=== PATIENT | female | born 1970 | race Caucasian/White ===

== ENCOUNTER 2018-07-14 18:26 | Emergency (ER) | payer BC ==
--- NOTE | 2018-07-14 19:51 | EDM.PDOC ---
ED HPI GENERAL MEDICAL PROBLEM - General Chief Complaint: Skin Complaint Stated Complaint: FISH HOOK IN MIDDLE FINGER [id number] Time Seen by Provider: 07/14/18 19:46 Source of Information: Reports: Patient History Limitations: Reports: No Limitations - History of Present Illness INITIAL COMMENTS - FREE TEXT/NARRATIVE: got fishhook in finger Right Hand Pain Score (Numeric/FACES): 3 - Related Data Allergies Allergy/AdvReac Type Severity Reaction Status Date / Time codeine Allergy Facial Verified 07/14/18 19:39 Swelling Home Meds: Home Meds Albuterol [Proventil HFA] 2 inh INH ASDIRECTED PRN 07/14/18 [History] ED ROS GENERAL - Review of Systems Review Of Systems: ROS reveals no pertinent complaints other than HPI. ED EXAM, SKIN/RASH Exam: See Below Exam Limited By: No Limitations General Appearance: Alert, WD/WN, Mild Distress, Other (pain in finger) Ears: Hearing Grossly Normal Throat/Mouth: Normal Voice, No Airway Compromise Head: Atraumatic Neck: Non-Tender, Full Range of Motion Respiratory/Chest: No Respiratory Distress Cardiovascular: Regular Rate, Rhythm GI/Abdominal: Soft, Non-Tender Extremities: Other (right middle, NV wnl, ) Neurological: Alert, Oriented, Normal Cognition, Normal Gait, No Motor/Sensory Deficits Psychiatric: Tearful Skin: Warm, Dry, Normal Color Location, Skin: Upper Extremity, Right ED SKIN PROCEDURES - Additional/Other Procedure(s) Other (Free Text) Procedure(s): 1) area cleanse 2) lido plain local 3) spfl incision with #11 4) hook removed without problem 5) dressed Course - Vital Signs Last Recorded V/S: Last Vital Signs Temp 35.9 C 07/14/18 19:29 Pulse 69 07/14/18 19:29 Resp 20 07/14/18 19:29 BP 126/89 07/14/18 19:29 Pulse Ox 99 07/14/18 19:29 Departure - Departure Time of Disposition: 19:50 Disposition: Home, Self-Care 01 Condition: Good Clinical Impression: [place] injury to finger Qualifiers: Encounter type: initial encounter Laterality: right Qualified Code(s): S69.91XA - Unspecified injury of right wrist, hand and finger(s), initial encounter - Discharge Information Instructions: Puncture Wound, [id number] Additional Instructions: 1) keep wound clean dry covered 2) wound check if looks infected
== END 2018-07-14 19:58 | disposition home or self-care (01) ==
LOC: DL.ED 18:26
DX: S60.551A Superficial foreign body of right hand, initial encounter (principal); Z88.5 Allergy status to narcotic agent; W45.8XXA Other foreign body or object entering through skin, initial encounter
CPT/HCPCS: 10120; 99283